=== PATIENT | male | born 1985 | race Two or more races ===

== ENCOUNTER 2021-07-31 00:58 | Emergency (ER) | payer MEDICAID, OTHER ==
[~2021-07-31] VITALS: Ht 167.6 cm; Wt 74.8 kg
--- NOTE | 2021-07-31 02:15 | NUR ---
Patient discharged to home in stable condition. Written and verbal after care instructions given. Patient verbalizes understanding of instruction.
[2021-07-31 02:16] VITALS: BP 110/70
== END 2021-07-31 02:16 | disposition home or self-care (01) ==
LOC: ER 01:00
DX: M54.9 Dorsalgia, unspecified (principal)